=== PATIENT | female | born 1985 | race Caucasian/White ===

== ENCOUNTER 2016-10-26 22:16 | Emergency (ER) | payer BC, OTHER, SELFPAY ==
[~2016-10-26 22:16] MED LIST: Iopamidol 370 76% 100 ML VIAL ONE
[2016-10-26 22:49] LABS: #Basophils 0.1 thou/uL (0.0-0.2); #Eosinphils 0.2 thou/uL (0.0-0.7); #Lymphocytes 2.4 thou/uL (1.20-3.40); #Monocytes 0.8 thou/uL (0.11-0.59); #Neutrophils 4.5 thou/uL (1.40-6.50); %Basophils 1.2 % (0.0-1.0); %Eosinophils 2.3 % (0.0-10.0); %Lymphocytes 30.4 % (21.0-51.0); %Neutrophils 56.1 % (42.0-75.0); Mean Corpuscular HGB CONC 34.3 g/dL (32.0-36.0); Mean Corpuscular Hemoglobin 31.5 pg (27.0-31.0); Mean Corpuscular Volume 91.9 fl (81.0-99.0); Mean Platelet Volume 8.8 fL (7.4-10.4); Platelet Count 284 thou/uL (130-400); RBC Distribution Width 12.1 % (11.5-14.5); Red Blood Cell (RBC) Count 4.44 mill/uL (4.20-5.40)
[2016-10-26 23:02] LABS: Pregnancy Test - Urine (BHCG) Negative (Negative); Pregu Control Background? CLEAR/WHITE (CLR/WHITE); Pregu Control Bar Appear? YES (CONTROL BAR); Specific Gravity 1.007 (1.002-1.036)
[2016-10-26 23:03] LABS: ALT (SGPT) 17 U/L (8-55); AST (SGOT) 20 U/L (5-34); Albumin 3.9 g/dL (3.5-5.0); Alkaline Phosphatase 58 U/L (40-150); Anion Gap 15 mmol/L (10-20); BUN (Urea Nitrogen) 7 mg/dL (7.0-18.7); Bilirubin, Total 0.5 mg/dL (0.2-1.2); Calc. Creatinine Clearance 0 mL/min (70-130); Calcium 8.8 mg/dL (7.8-10.44); Carbon Dioxide 22 mmol/L (22-29); Chloride 108 mmol/L (98-107); Estimated GFR-MDRD 90; Globulin 2.4 g/dL (2.4-3.5); Glucose 95 mg/dL (70-105); Lipase 15 U/L (8-78); Potassium 3.7 mmol/L (3.5-5.1); Protein, Total 6.3 g/dL (6.0-8.3); Sodium 141 mmol/L (136-145)
[2016-10-26 23:05] LABS: Bilirubin Negative (Negative); Blood, Urine Small (Negative); Glucose, Urine (Dipstick) Negative (Negative); Leukocyte Small (Negative); Nitrite Negative (Negative); Protein, Urine (Dipstick) Negative (Neg-Trace); Urobilinogen 0.2 mg/dL (0.2-1.0)
[2016-10-26 23:06] LABS: Clarity Hazy (Clear); Specific Gravity, Urine 1.007 (1.002-1.036)
[2016-10-26 23:13] LABS: Amphetamine Detected (NotDetected); Barbiturates Screen Not Detected (NotDetected); Benzodiazepine Screen Not Detected (NotDetected); Cocaine Metabolite Screen Not Detected (NotDetected); Medtox Control Line Valid? VALID (VALID); Methadone Not Detected (NotDetected); Methamphetamine Not Detected (NotDetected); Opiate Screen Not Detected (NotDetected); Oxycodone Screen Not Detected (NotDetected); Phencyclidine (PCP) Not Detected (NotDetected); THC/Cannabinoid Screen Not Detected (NotDetected); Tricyclic Screen Not Detected (NotDetected)
[2016-10-26 23:17] LABS: Squamous Epithelial 0-3 HPF (0-3); WBC/HPF 0-3 HPF (0-3)
[2016-10-26 23:18] LABS: Transitional Epithelial 0-3 HPF (0-3)
[2016-10-26] MEDS ORDERED: Fentanyl 100 MCG/2 ML VIAL ONE (23:18)
--- NOTE | 2016-10-27 07:34 | CT ---
PRELIMINARY REPORT/[facility]/EMERGENCY AFTER HOURS PROCEDURE: EXAM: CT Abdomen and Pelvis With Intravenous Contrast EXAM DATE/TIME: 10/26/2016 11:39 PM CLINICAL HISTORY: 31 years old, female; Pain; Abdominal pain; Generalized; Patient HX: Pt presents to the er for abdom inal pain; C/O mid abd pain today with constipation x 3 weeks. TECHNIQUE: Axial computed tomography images of the abdomen and pelvis with intravenous contrast. All CT scans a t this facility use one or more dose reduction techniques, viz.: automated exposure control; ma/kV a djustment per patient size (including targeted exams where dose is matched to indication; i.e. head); or iterative reconstruction technique. Coronal and sagittal reformatted images were created and reviewed. CONTRAST: 95 mL of ISOVUE 370 administered intravenously. COMPARISON: No relevant prior studies available. FINDINGS: Lower thorax: No acute findings. ABDOMEN: Liver: Unremarkable. No mass. Gallbladder and bile ducts: Gallbladder appears contracted, limits evaluation. No calcified stones. No ductal dilation. Pancreas: Unremarkable. No mass. No ductal dilation. Spleen: Unremarkable. No splenomegaly. Adrenals: Unremarkable. No mass. Kidneys and ureters: Unremarkable. No solid mass. No hydronephrosis. Stomach and bowel: No evidence of bowel obstruction. Mild - moderate amount retained stool material throughout throughout the nondilated colon. No mucosal thickening. Appendix: No findings to suggest acute appendicitis. PELVIS: Bladder: Unremarkable. No mass. Reproductive: Multiple suspected cysts 1-3 cm within the left ovary. Uterus appears within normal li mits. ABDOMEN and PELVIS: Intraperitoneal space: Unremarkable. No free air. No significant fluid collection. Bones/joints: No acute fracture. No dislocation. Soft tissues: Unremarkable. Vasculature: Unremarkable. No abdominal aortic aneurysm. Lymph nodes: Unremarkable. No enlarged lymph nodes. IMPRESSION: 1. No evidence of bowel obstruction. 2. Multicystic left ovary. 3. Findings suggest some degree of constipation. Clinical correlation is recommended. Thank you for allowing us to participate in the care of your patient. Dictated and Authenticated by: Scott Leon MD 10/27/2016 12:57 AM Central Time ([place] \T\ [place]) FINAL REPORT CT ABDOMEN AND PELVIS WITH CONTRAST: DAET: 10/26/16. FINDINGS: Spiral CT of the abdomen and pelvis was performed for evaluation of abdominal pain and constipation. Axial slices were acquired after giving IV contrast. Oral contrast was withheld by request. Stefanie nal and sagittal reconstructions were then done. The lung bases are clear. The liver, spleen, pancreas, adrenal glands, kidneys, and abdominal aorta appear normal. The gallbladder is somewhat contracted and difficult to evaluate well, but no gross stones were identified. Tiny ones would be missed by this examination. There is no sign of bowel obstruction or inflammatory change around bowel. There is a moderate amou nt of fecal material in the colon. There is no evidence of appendicitis. No free air or free fluid was seen in the abdomen. CT of the pelvis was remarkable for a cystic area in the left adnexal region measuring up to 3 cm in size. This may be an ovarian cyst. No substantial free fluid was seen. There were no other findi ngs of concern in the pelvis. IMPRESSION: 1. Constipation. 2. Presumed left ovarian cyst or cysts. Ultrasound would be helpful in showing this better. Report in agreement with preliminary reading by [employer]. POS: HOME
== END 2016-10-27 01:25 | disposition home or self-care (01) ==
LOC: BURERS 22:16
DX: K59.00 Constipation, unspecified (principal); F41.9 Anxiety disorder, unspecified; F32.9 Major depressive disorder, single episode, unspecified; F17.210 Nicotine dependence, cigarettes, uncomplicated; G89.29 Other chronic pain; M54.9 Dorsalgia, unspecified
CPT/HCPCS: 51701; 74177; 80053; 80306; 81003; 81015; 81025; 83690; 85025; 94760; 96374; A4216; A4353; J3010